=== PATIENT | male | born 1940 | race Caucasian/White ===

== ENCOUNTER 2019-06-02 19:44 | Inpatient (IN) | payer MEDICARE, BC ==
[~2019-06-02] VITALS: Ht 172.7 cm; Wt 63.7 kg
[~2019-06-02 19:44] MED LIST: ALBU2.5V5 INH; ALBU90OI INH; Prednisone20 MG PO; Zithromax250 MG PO
[2019-06-02 22:47] LABS: Hematocrit 22.1 % (37.0-53.0); Hemoglobin 7.1 g/dL (13.5-17.5); Mean Corpuscular HGB 30.3 pg (26.0-34.0); Mean Corpuscular HGB Conc 32.1 g/dL (31.5-36.5); Mean Corpuscular Volume 94 fL (80-100); Mean Platelet Volume 11.1 fL (9.1-12.4); NRBC ABSOLUTE 2.05 K/mm3 (0.00-0.02); NRBC Auto 13.2 /100 WBC (0.0-0.2); RDW Coefficient Variation 16.2 % (11.7-14.2); RDW Standard Deviation 51.2 fL (35.1-46.3); Red Blood Cell Count 2.34 M/mm3 (4.30-5.90); White Blood Cell Count 15.55 K/mm3 (4.00-11.30)
[2019-06-02 22:53] LABS: Platelet Count 43 K/mm3 (150-400)
[2019-06-02 23:07] LABS: Albumin/Globulin Ratio 0.8 (0.8-1.8); Bilirubin, Total 0.5 mg/dL (0.1-1.0); Bun/Creatinine Ratio 26.8 (12.0-20.0); Calcium, Blood 7.7 mg/dL (8.5-10.1); Creatinine, Blood 1.9 mg/dL (0.60-1.20); Globulin, Blood 3.8 g/dL (2.2-4.0); Potassium, Blood 4.6 mmol/L (3.5-5.5); Total Protein, Blood 6.8 g/dL (6.4-8.2)
[2019-06-02 23:12] LABS: BAND PERCENT MAN 8 % (0-8); BASOPHILS PERCENT MAN 0 % (0-2); EOSINOPHILS PERCENT MAN 0 % (0-6); LYMPHOCYTES ABSOLUTE MAN 3.42 K/mm3 (0.84-5.20); LYMPHOCYTES PERCENT MAN 22 % (21-46); METAMYELOCYTE ABSOLUTE MAN 0.31 K/mm3 (0.00-0.00); METAMYELOCYTE PERCENT MAN 2 % (0-0); MONOCYTES ABSOLUTE MAN 0.93 K/mm3 (0.16-1.47); MONOCYTES PERCENT MAN 6 % (4-13); NEUTROPHILS ABSOLUTE MAN 10.88 K/mm3 (1.96-9.15); SEG NEUTROPHILS PERCENT MAN 62 % (41-73); TOTAL CELLS COUNTED 100
[2019-06-02 23:28] LABS: Troponin I 19.7 ng/mL (0.000-0.040)
[2019-06-03] MEDS ORDERED: [UNRECOGNIZED DRUG - OTHER] (01:42)
--- NOTE | 2019-06-03 01:55 | NUR ---
CALLED DR. MAYA TO VERIFY LOVENOX AND ASPIRN ORDER DUE TO PLT COUNT OF 49. DOCTOR STATED TO HOLD THIS DOSE AND GIVE ASPIRN. WANTS TO GIVE A UNIT OF BLOOD THEN REEVALUATE.
--- NOTE | 2019-06-03 03:25 | NUR ---
STARTED PATIENT UNIT OF BLOOD.
--- NOTE | 2019-06-03 03:40 | NUR ---
PATIENT HAS HAD NO REACTION TO BLOOD AT THIS TIME. PRBC CONTINUE TO INFUSE.
--- NOTE | 2019-06-03 06:36 | NUR ---
PATIENT BLOOD IS ALMOST FINISHED. PATIENT VITALS STABLE. PATIENT DENIES ANY SYMPTOMS OR CHANGES. DENIES ANY NEEDS AT THIS TIME.
[2019-06-03 07:12] LABS: Percent Saturation 62.7 % (20.0-50.0)
[2019-06-03 07:45] LABS: Hematocrit 23.5 % (37.0-53.0); Hemoglobin 7.8 g/dL (13.5-17.5); Mean Corpuscular HGB 29.8 pg (26.0-34.0); Mean Corpuscular HGB Conc 33.2 g/dL (31.5-36.5); Mean Platelet Volume 11.9 fL (9.1-12.4); NRBC ABSOLUTE 1.87 K/mm3 (0.00-0.02); NRBC Auto 14.3 /100 WBC (0.0-0.2); RDW Standard Deviation 45.1 fL (35.1-46.3); Red Blood Cell Count 2.62 M/mm3 (4.30-5.90); White Blood Cell Count 13.09 K/mm3 (4.00-11.30)
[2019-06-03 07:50] LABS: IMMATURE RETIC FRACTION 26.6 % (2.3-16.0); RETIC HGB EQUIVALENT 37.5 pg (28.20-36.60); RETICULOCYTE COUNT PERCENT 2.08 % (0.50-2.50)
[2019-06-03 07:52] LABS: Mean Corpuscular Volume 90 fL (80-100)
[2019-06-03 08:02] LABS: Albumin, Blood 2.9 g/dL (3.4-5.0); Albumin/Globulin Ratio 0.9 (0.8-1.8); Bilirubin, Total 0.8 mg/dL (0.1-1.0); Bun/Creatinine Ratio 30.2 (12.0-20.0); Calcium, Blood 7.6 mg/dL (8.5-10.1); Creatinine, Blood 1.72 mg/dL (0.60-1.20); Globulin, Blood 3.3 g/dL (2.2-4.0); Potassium, Blood 4.2 mmol/L (3.5-5.5); Total Protein, Blood 6.2 g/dL (6.4-8.2)
[2019-06-03 08:26] LABS: Platelet Count 39 K/mm3 (150-400)
--- NOTE | 2019-06-03 08:30 | NUR ---
AM NOTE. ASSUMED CARE OF PT APROX 0700, PT IS A&Ox4 AND SBA IN THE ROOM. PT WAS ADMITTED FOR ACS. PT DENIES ANY CHEST PAIN/PRESSURE, N/V OR SOB. PT IS ON 2L NC WITH O2 >90% PT DOES NOT USE O2 AT HOME. PT BECOMES SLIGHTLY SOB WITH ACTIVITY. PT'S VS STABLE AT THIS TIME. WILL CONTINUE TO MONITOR.
[2019-06-03 08:38] LABS: Creatine Kinase MB 39.2 ng/mL (0.0-3.6); Creatine Kinase MB Index 5.4 (0.0-4.0)
[2019-06-03 10:55] LABS: Free Thyroxine 0.84 ng/dL (0.70-1.60)
[2019-06-03 11:13] LABS: Thyroid Stimulating Hormone 4.41 uIU/mL (0.360-4.800)
--- NOTE | 2019-06-03 16:02 | NUR ---
echocardiogram complete
--- NOTE | 2019-06-03 17:58 | NUR ---
SHIFT SUMMARY. NO ACUTE NEGATIVE CHANGES NOTED THIS SHIFT. PT'S BREATHING HAS GREATLY IMPROVED AND PT HAS BEEN ON RA SINCE APROX 1200. PT HAS BEEN ABLE TO AMBULATE TO THE BATHROOM AND BACK AND ONLY BECOMES SLIGHTLY SOB AND HE IS ABLE TO RECOVER QUICKLY W/O ANY O2 SUPPLEMENTATION. PT WAS TOLD THAT HE MIGHT HAVE MYLEOFIBROSIS AND THAT IS WHAT IS CAUSING THE ANEMIA AND OTHER ISSUES. PT AND FAMILY WERE VERY UPSET BY THIS NEWS, PT HAS BEEN TEARFUL T/O SHIFT. SEVERAL HOURS HAVE BEEN SPENT BY THIS RN PROVIDING THE PT AND FAMILY EDUCATION AND EMOTIONAL SUPPORT. PT HAD CT OF THE ABD W/ORAL CONTRAST THIS AFTERNOON, RESULTS ARE PENDING. PT HAS DENIED ANY CHEST PAIN AT ALL THIS SHIFT. CALL LIGHT IN REACH, BED IS LOCKED AND LOW WILL CONTINUE TO MONITOR UNTIL REPORT IS GIVEN TO ONCOMING RN.
--- NOTE | 2019-06-03 22:06 | NUR ---
INFUSION OF ONE UNIT OF PRBC'S STARTED.
[2019-06-04 02:04] LABS: Bilirubin, Urine Neg (Neg); Blood, Urine 2+ (Neg); Glucose Qualitative, Urine Neg (Neg); Ketones, Urine Neg (Neg); Leukocyte Esterase, Urine Neg (Neg); Nitrite, Urine Neg (Neg); Protein, Urine 2+ (Neg); Specific Gravity, Urine 1.025 (1.003-1.022); Urobilinogen, Urine NORM (Normal)
[2019-06-04 02:07] LABS: Appearance, Urine Clear (Clear); Color, Urine Yellow (P-Yellow)
[2019-06-04 02:11] LABS: Amorphous Light (0-Heavy); Bacteria Few /hpf; Red Blood Cells, Urine 0-2 /hpf (0-2); Squamous Epithelial Cells Not Seen /hpf (Few); White Blood Cells, Urine 0-2 /hpf (0-5)
[2019-06-04 02:12] LABS: Uric Acid Crystals Mod /hpf
--- NOTE | 2019-06-04 03:46 | NUR ---
PATIENT RECIEVED ONE UNIT OF BLOOD WITH NO REACTION NOTED. PATIENT SLEEPING THROUGH THE NIGHT. PATIENT BLOOD PRESSURE SOFT IN THE 90'S THROUGH THE NIGHT. PATIENT ASYMPTOMATIC WITH ADEQUATE MAPS. PATIENT BASELINE IS IN THE 100'S. PATIENT DENIES ANY PAIN.
[2019-06-04 04:29] LABS: BASOPHILS ABSOLUTE AUTO 0.02 K/mm3 (0.00-0.23); BASOPHILS PERCENT AUTO 0 % (0-2); EOSINOPHILS PERCENT AUTO 0 % (0-6); Hematocrit 26.9 % (37.0-53.0); Hemoglobin 9.3 g/dL (13.5-17.5); Mean Corpuscular HGB Conc 34.6 g/dL (31.5-36.5); Mean Corpuscular Volume 90 fL (80-100); Mean Platelet Volume 11.6 fL (9.1-12.4); NRBC ABSOLUTE 1.42 K/mm3 (0.00-0.02); NRBC Auto 14.7 /100 WBC (0.0-0.2); RDW Coefficient Variation 15.2 % (11.7-14.2); RDW Standard Deviation 46.5 fL (35.1-46.3); White Blood Cell Count 9.65 K/mm3 (4.00-11.30)
[2019-06-04 04:32] LABS: IMMATURE GRAN ABSOLUTE AUTO 0.28 K/mm3 (0.00-0.10); IMMATURE GRAN PERCENT AUTO 3 % (0-1); LYMPHOCYTES ABSOLUTE AUTO 3.74 K/mm3 (0.84-5.20); LYMPHOCYTES PERCENT AUTO 39 % (21-46); MONOCYTES ABSOLUTE AUTO 0.29 K/mm3 (0.16-1.47); MONOCYTES PERCENT AUTO 3 % (4-13); NEUTROPHILS ABSOLUTE AUTO 5.32 K/mm3 (1.96-9.15); NEUTROPHILS PERCENT AUTO 55 % (41-73)
[2019-06-04 04:33] LABS: Platelet Count 27 K/mm3 (150-400)
[2019-06-04 04:45] LABS: Albumin, Blood 2.8 g/dL (3.4-5.0); Albumin/Globulin Ratio 0.8 (0.8-1.8); Bilirubin, Total 0.8 mg/dL (0.1-1.0); Creatinine, Blood 1.53 mg/dL (0.60-1.20); Globulin, Blood 3.5 g/dL (2.2-4.0); Magnesium, Blood 2.8 mg/dL (1.6-2.4); Phosphorus, Blood 4.3 mg/dL (2.5-4.9); Total Protein, Blood 6.3 g/dL (6.4-8.2)
[2019-06-04 07:07] LABS: COMPLEMENT C3, SERUM 124 mg/dL (82-167); COMPLEMENT C4, SERUM 27 mg/dL (14-44); HAPTOGLOBIN 316 mg/dL (34-200)
--- NOTE | 2019-06-04 17:00 | NUR ---
END OF SHIFT; PT IS TO RECEIVE A BIOPSY TOMORROW PER . HE REMAINS ON BEDREST TODAY. PT ASKS FOR O2 AT 2 LITERS NASAL CANNULA. STATES IT MAKES HIM FEEL BETTER. PT APPEARS TO BE VERY ANXIOUS WHEN NOT ON O2. FAMILY REMAINS AT BEDSDIE THROUGHOUT DAY. VSS CHARTED. EGG CRATE PLACED ON BED AND MEPELEX TO BUTTOCKS FOR RED AREA THAT BLANCHES TO TOUCH. HE RECEIVED ONE UNIT OF FFP. ALSO HAS MEDICATION THAT WAS SORDERED BY THAT PER PHARMACY IS NOT AVAILABLE UNTIL THE AM TOMORROW. WILL CONTINUE TO MONITOR THIS PATIENT UNTIL REPORT AND HAND OFF TO NOC SHIFT RN.
--- NOTE | 2019-06-05 01:47 | NUR ---
ASSUMED CARE AT 1900 AND MUCH FAMILY PRESENT . LEFT BY 1999 TO ALLOW BETTER REST REQUESTED. REPORTS NO SORE UNDER PREVENTIVE COCCYX MEPILEX. EGG CRATE AND TURNING FROM SIDE TO SIDE. AWARE OF BX TOMORROW AND QUESTIONS ANSWERED. ATE A SANDWICH AND TOLERATED W/O GI DISTRESS. DOES KEEP HOB MOSTLY SEMI FOWLERS.FEELS MORE COMFORTABLE W/ 2L NC ON . LONG HX OF ASTHMA AND WOULD BE IN HOPES HE COULD QUALIFY FOR O2 AT HIS HOME. REOORTS STRUGGLING W/ SOB ALL WEEK ON EXERTION AND WENT TO ED 3 TIMES IN 3 DAYS. LONG DISCUSSION, WHEN IN ROOM, ABOUT GRANDAUGHTERS AND DISATISFACTION W/ THIS ED AND HOSPITAL. ENCOURAGED TO DISCUSS FEELINGS FREELY. REPORTS HE APPRECIATES STAFF AND MD CASTANO, THUS FAR FOR HIS CONDITION. NOT OUT OF BED SO NOT NOTICING ANY SOB .
[2019-06-05 02:25] LABS: Bilirubin, Urine Neg (Neg); Blood, Urine Neg (Neg); Glucose Qualitative, Urine Neg (Neg); Ketones, Urine Neg (Neg); Leukocyte Esterase, Urine Neg (Neg); Nitrite, Urine Neg (Neg); Protein, Urine 1+ (Neg); Urobilinogen, Urine NORM (Normal)
[2019-06-05 02:28] LABS: Appearance, Urine Clear (Clear); Color, Urine Yellow (P-Yellow)
[2019-06-05 04:27] LABS: BASOPHILS ABSOLUTE AUTO 0.01 K/mm3 (0.00-0.23); BASOPHILS PERCENT AUTO 0 % (0-2); EOSINOPHILS ABSOLUTE AUTO 0.01 K/mm3 (0.00-0.68); EOSINOPHILS PERCENT AUTO 0 % (0-6); Hematocrit 25.2 % (37.0-53.0); Hemoglobin 8.3 g/dL (13.5-17.5); Mean Corpuscular HGB 30.4 pg (26.0-34.0); Mean Corpuscular HGB Conc 32.9 g/dL (31.5-36.5); Mean Corpuscular Volume 92 fL (80-100); Mean Platelet Volume 10.7 fL (9.1-12.4); NRBC ABSOLUTE 1.05 K/mm3 (0.00-0.02); NRBC Auto 12.6 /100 WBC (0.0-0.2); Platelet Count 63 K/mm3 (150-400); RDW Coefficient Variation 15.8 % (11.7-14.2); RDW Standard Deviation 49.4 fL (35.1-46.3); Red Blood Cell Count 2.73 M/mm3 (4.30-5.90); White Blood Cell Count 8.31 K/mm3 (4.00-11.30)
[2019-06-05 04:40] LABS: IMMATURE GRAN ABSOLUTE AUTO 0.21 K/mm3 (0.00-0.10); IMMATURE GRAN PERCENT AUTO 3 % (0-1); LYMPHOCYTES ABSOLUTE AUTO 2.76 K/mm3 (0.84-5.20); LYMPHOCYTES PERCENT AUTO 33 % (21-46); MONOCYTES ABSOLUTE AUTO 0.25 K/mm3 (0.16-1.47); MONOCYTES PERCENT AUTO 3 % (4-13); NEUTROPHILS ABSOLUTE AUTO 5.07 K/mm3 (1.96-9.15); NEUTROPHILS PERCENT AUTO 61 % (41-73)
[2019-06-05 04:45] LABS: Albumin, Blood 2.6 g/dL (3.4-5.0); Anion Gap 9 mmol/L (6-16); Blood Urea Nitrogen 48 mg/dL (8-24); Bun/Creatinine Ratio 33.1 (12.0-20.0); CO2, Blood 23 mmol/L (21-32); Calcium, Blood 7.6 mg/dL (8.5-10.1); Chloride, Blood 107 mmol/L (98-108); Creatinine, Blood 1.45 mg/dL (0.60-1.20); Glomerular Filtration Rate 50 (60-); Glucose, Blood 107 mg/dL (70-99); Magnesium, Blood 2.8 mg/dL (1.6-2.4); Phosphorus, Blood 4.2 mg/dL (2.5-4.9); Potassium, Blood 3.8 mmol/L (3.5-5.5); Sodium, Blood 139 mmol/L (136-145)
--- NOTE | 2019-06-05 06:12 | NUR ---
SHIFT SUMMARY. SLEPT ALL NOC BP LOWER , MAP WNL AND ASYMPTOMATIC. AWAKENS AND STEADY GAIT FOR STANDING AT BEDSIDE TO VOID. MENTATION CLEAR AND NO EVIDENCE OF ANXIOUSNESS . DID NOT STAY THE NOC. NO SOB NOTED LEFT O2 ON AT 1L FOR PERSONAL COMFORT
--- NOTE | 2019-06-05 08:05 | NUR ---
Pt states he saw Dr Austin this morning. Dr. Onofre is here now seeing the pt. He states he "is ready for the [employer]" as he feels paranoid about his shortness of breath with activity, but states that it does get better right after rest. 2 Units of PRBCs have been ordered. The pt at this time is pleasantly conversant, cheerful, and talkative while at rest in bed.
[2019-06-05 10:40] LABS: Antinuclear Antibody Screen Negative (Negative)
[2019-06-05 12:06] LABS: ANTI-DSDNA ANTIBODIES 9 IU/mL (0-9); RNP ANTIBODIES 0.6 AI (0.0-0.9); SJOGREN'S ANTI-SS-A <0.2 AI (0.0-0.9); SJOGREN'S ANTI-SS-B <0.2 AI (0.0-0.9); SMITH ANTIBODIES <0.2 AI (0.0-0.9)
[2019-06-05 13:23] LABS: International Normalized Ratio 1.02; Prothrombin Time Results 10.8 Sec (9.7-11.5)
--- NOTE | 2019-06-05 13:35 | NUR ---
Carlton has been asking lots of questions about his diet and medications after discharge. Underlying anxiety certainly seems to be present with regard to his current health condition. He states that he has had no PCP, but expects to be following Dr. Austin and "figuring all that out with him". He was given educational material regarding 1800cc fluid restriction, cardiac diet, and low purine diet as recommended. Also provided the pt with an [employer] "Self check guide" to monitor his CHF at home. Also provided AHA CHF educational material for the pt to read so he would have time before discharge to ask questions if he had any; however, he has declined to actually read the material. He seemed to be discouraged at the thought that his EF was less than 40%. Noted that perhaps due to memory loss or possibly his heightened anxiety and stress level given the fresh diagnosis, that he is repeating his questions frequently and also repeating the same information to me, at times within the space of just a few minutes. Otherwise he seems alert and oriented.
--- NOTE | 2019-06-05 17:05 | NUR ---
Spoke with a emergency room rn this morning and gave the pt educational materials as explained. The pt states that he has not yet reviewed the material. He is requesting a dietary consult so that he could have an actual person to talk to about the dietary recommendations. He is anxious and asking many questions about the fluid restriction; often in the same brief conversation he will repeat the same questions multiple times. At this time 1750 cc /[address] Onofre.
[2019-06-05 17:07] LABS: ALBUMIN 3.2 g/dL (2.9-4.4); ALPHA-1-GLOBULIN 0.4 g/dL (0.0-0.4); ALPHA-2-GLOBULIN 1.1 g/dL (0.4-1.0); BETA GLOBULIN 0.8 g/dL (0.7-1.3); GAMMA GLOBULIN 0.9 g/dL (0.4-1.8); GLOBULIN, TOTAL 3.2 g/dL (2.2-3.9); IMMUNOGLOBULIN A, QN, SERUM 191 mg/dL (61-437); IMMUNOGLOBULIN G, QN, SERUM 1080 mg/dL (700-1600); IMMUNOGLOBULIN M, QN, SERUM 48 mg/dL (15-143); M-SPIKE Not Observed g/dL (Not Observed); PROTEIN, TOTAL, SERUM 6.4 g/dL (6.0-8.5)
--- NOTE | 2019-06-05 22:11 | NUR ---
PCU ASSUMED CARE PATIENT ALERT AND ORIENTED X4. RESP E/U ON ROOM AIR. VSS. PATIENT DENIES ANY PAIN AT THIS TIME. PATIENT VOIDING DARK YELLOW URINE - CLEAR IN URINAL. PATIENT RESTING IN UNIT BED AT THIS TIME, DENIES ANY NEEDS. WILL CONTINUE TO MONITOR.
--- NOTE | 2019-06-06 05:56 | NUR ---
PCU NOC SHIFT SUMMARY PATIENT ALERT AND ORIENTED T/O SHIFT. DENIES ANY PAIN T/O SHIFT; RESP E/U AT REST ON ROOM AIR. PATIENTS VSS. NO ACUTE EVENTS OVER NIGHT. HEART RATE REMAINS 80'S IN NSR. WILL CONTINUE TO MONITOR AND GIVE REPORT TO DAYSHIFT RN. PATIENT TO D/C HOME TODAY AND FOLLOW MD PARADA AND A MEAT STRINGER OUTPATIENT.
[2019-06-06 05:59] LABS: (LD) FRACTION 1 27 % (17-32); (LD) FRACTION 2 33 % (25-40); (LD) FRACTION 3 23 % (17-27); (LD) FRACTION 4 10 % (5-13); (LD) FRACTION 5 7 % (4-20); LDH 578 IU/L (121-224)
[2019-06-06] MEDS ORDERED: ALLO300 PO (11:40)
[2019-06-06] MEDS ORDERED: FURO40 PO (11:41)
[2019-06-06] MEDS ORDERED: ATOR80 PO (11:41)
[2019-06-06] MEDS ORDERED: CARV3.125 PO (11:41)
[2019-06-06] MEDS ORDERED: OMEPRAZOLE20 MG PO (11:42)
--- NOTE | 2019-06-06 14:43 | NUR ---
DISCHARGE SUMMARY PT A&Ox4. PT ANXIOUS, REPEATING QUESTIONS AND STATEMENTS. PT RESTING IN BED DURING SHIFT, UP WITH SBA IN ROOM. PT REPORTS MILD SOB WITH EXERTIONS, >92% ON RA. PT DENIES PAIN AND NAUSEA, T/O SHIFT. PT TRANSITIONED TO PO LASIX THIS AM. VSS. NO OTHER ACUTE CHAGNES NOTED. PT AND SPOUSE EDUCATED ON DISCHARGE INSTRUCTIONS, MEDICATIONS AND FOLLOW UP APPOINTMENTS. PRESCRIPTIONS FAXED TO [facility], PER PT REQUEST. PT LEFT ROOM AT 1425 VIA WHEELCHAIR, PT STABLE UPON DISCHARGE.
[2019-06-06 17:07] LABS: ALBUMIN 2.9 g/dL (2.9-4.4); ALPHA-1-GLOBULIN 0.4 g/dL (0.0-0.4); ALPHA-2-GLOBULIN 1.1 g/dL (0.4-1.0); BETA GLOBULIN 0.7 g/dL (0.7-1.3); GAMMA GLOBULIN 0.8 g/dL (0.4-1.8); GLOBULIN, TOTAL 3.1 g/dL (2.2-3.9); IMMUNOGLOBULIN A, QN, SERUM 182 mg/dL (61-437); IMMUNOGLOBULIN G, QN, SERUM 847 mg/dL (700-1600); IMMUNOGLOBULIN M, QN, SERUM 42 mg/dL (15-143); M-SPIKE Not Observed g/dL (Not Observed)
[2019-06-08 15:20] LABS: Performing Lab SYMBIODX; Test Name TISSUE BLOCK
== END 2019-06-06 14:34 | disposition home or self-care (01) | DRG 264 ==
LOC: ER 19:44 → PCU 23:58
PROVIDERS: Emergency Medicine; Internal Medicine; Internal Medicine Hematology & Oncology; ADMIT Internal Medicine
PROC: 30233N1 Transfusion of Nonautologous Red Blood Cells into Peripheral Vein, Percutaneous Approach (ICD-10-PCS; principal; 2019-06-02)
PROC: 07B63ZX Excision of Left Axillary Lymphatic, Percutaneous Approach, Diagnostic (ICD-10-PCS; 2019-06-05)
DX: I13.0 Hypertensive heart and chronic kidney disease with heart failure and stage 1 through stage 4 chronic kidney disease, or unspecified chronic kidney disease (principal); I50.21 Acute systolic (congestive) heart failure; N17.9 Acute kidney failure, unspecified; I24.9 Acute ischemic heart disease, unspecified; C85.90 Non-Hodgkin lymphoma, unspecified, unspecified site; N18.9 Chronic kidney disease, unspecified; D63.1 Anemia in chronic kidney disease; D69.6 Thrombocytopenia, unspecified; D69.49 Other primary thrombocytopenia; N28.9 Disorder of kidney and ureter, unspecified; I25.5 Ischemic cardiomyopathy; E11.22 Type 2 diabetes mellitus with diabetic chronic kidney disease; I25.10 Atherosclerotic heart disease of native coronary artery without angina pectoris; J45.909 Unspecified asthma, uncomplicated; R59.1 Generalized enlarged lymph nodes
CPT/HCPCS: 36415; 36416; 36430; 38505; 71046; 71250; 74176; 76942; 80053; 80069; 81001; 82550; 82553; 82607; 82728; 82746; 82784; 82947; 83010; 83036; 83540; 83550; 83615; 83625; 83735; 83880; 83883; 84100; 84155; 84165; 84439; 84443; 84484; 84550; 85025; 85027; 85045; 85610; 86038; 86160; 86225; 86235; 86301; 86334; 86430; 86850; 86900; 86901; 86920; 88305; 88341; 88342; 93005; 93010; 93306; 94640; 94761; 99284-25; 99285-25; J1940; J2783; J7050; P9016; P9035

== ENCOUNTER 2019-07-10 19:20 | Inpatient (IN) | payer MEDICARE, BC ==
[~2019-07-10] VITALS: Ht 172.7 cm; Wt 65.4 kg
[~2019-07-10 19:20] MED LIST changes: +ALLO300 PO; +ATOR80 PO; +CARV3.125 PO; +FURO40 PO; +OMEPRAZOLE20 MG PO; +[UNRECOGNIZED DRUG - OTHER]
[2019-07-10] MEDS ORDERED: ONDA8 PO (19:47)
[2019-07-10 19:48] LABS: BASOPHILS ABSOLUTE AUTO 0.01 K/mm3 (0.00-0.23); BASOPHILS PERCENT AUTO 0 % (0-2); EOSINOPHILS PERCENT AUTO 0 % (0-6); Hemoglobin 7.2 g/dL (13.5-17.5); IMMATURE GRAN ABSOLUTE AUTO 0.04 K/mm3 (0.00-0.10); IMMATURE GRAN PERCENT AUTO 1 % (0-1); LYMPHOCYTES ABSOLUTE AUTO 0.26 K/mm3 (0.84-5.20); LYMPHOCYTES PERCENT AUTO 4 % (21-46); MONOCYTES ABSOLUTE AUTO 0.54 K/mm3 (0.16-1.47); MONOCYTES PERCENT AUTO 8 % (4-13); Mean Platelet Volume 10.4 fL (9.1-12.4); NEUTROPHILS ABSOLUTE AUTO 5.84 K/mm3 (1.96-9.15); NEUTROPHILS PERCENT AUTO 87 % (41-73); NRBC ABSOLUTE 0.02 K/mm3 (0.00-0.02); NRBC Auto 0.3 /100 WBC (0.0-0.2); Platelet Count 109 K/mm3 (150-400); White Blood Cell Count 6.69 K/mm3 (4.00-11.30)
[2019-07-10] MEDS ORDERED: XARELTO20 MG PO (19:48)
[2019-07-10 20:00] LABS: Albumin, Blood 2.5 g/dL (3.4-5.0); Albumin/Globulin Ratio 0.9 (0.8-1.8); Bilirubin, Total 0.8 mg/dL (0.1-1.0); Bun/Creatinine Ratio 19.5 (12.0-20.0); Calcium, Blood 7.5 mg/dL (8.5-10.1); Creatinine, Blood 1.54 mg/dL (0.60-1.20); Globulin, Blood 2.8 g/dL (2.2-4.0); Potassium, Blood 4.3 mmol/L (3.5-5.5); Total Protein, Blood 5.3 g/dL (6.4-8.2)
[2019-07-10 20:04] LABS: Hematocrit 22.9 % (37.0-53.0); Mean Corpuscular HGB 35.1 pg (26.0-34.0); Mean Corpuscular HGB Conc 31.4 g/dL (31.5-36.5); Mean Corpuscular Volume 112 fL (80-100); Red Blood Cell Count 2.05 M/mm3 (4.30-5.90)
[2019-07-11 03:41] LABS: BASOPHILS ABSOLUTE AUTO 0.02 K/mm3 (0.00-0.23); BASOPHILS PERCENT AUTO 0 % (0-2); EOSINOPHILS ABSOLUTE AUTO 0.01 K/mm3 (0.00-0.68); EOSINOPHILS PERCENT AUTO 0 % (0-6); Hematocrit 26.9 % (37.0-53.0); Hemoglobin 8.7 g/dL (13.5-17.5); IMMATURE GRAN ABSOLUTE AUTO 0.05 K/mm3 (0.00-0.10); IMMATURE GRAN PERCENT AUTO 1 % (0-1); LYMPHOCYTES ABSOLUTE AUTO 0.28 K/mm3 (0.84-5.20); LYMPHOCYTES PERCENT AUTO 4 % (21-46); MONOCYTES ABSOLUTE AUTO 0.73 K/mm3 (0.16-1.47); MONOCYTES PERCENT AUTO 10 % (4-13); Mean Corpuscular HGB 33.3 pg (26.0-34.0); Mean Corpuscular HGB Conc 32.3 g/dL (31.5-36.5); Mean Platelet Volume 10.8 fL (9.1-12.4); NEUTROPHILS ABSOLUTE AUTO 5.94 K/mm3 (1.96-9.15); NEUTROPHILS PERCENT AUTO 85 % (41-73); NRBC ABSOLUTE 0.02 K/mm3 (0.00-0.02); NRBC Auto 0.3 /100 WBC (0.0-0.2); Platelet Count 87 K/mm3 (150-400); RDW Coefficient Variation 25.2 % (11.7-14.2); Red Blood Cell Count 2.61 M/mm3 (4.30-5.90); White Blood Cell Count 7.03 K/mm3 (4.00-11.30)
[2019-07-11 03:47] LABS: Mean Corpuscular Volume 103 fL (80-100)
--- NOTE | 2019-07-11 06:32 | NUR ---
SHIFT SUMMARY PT SLEEPING IN ROOM COMFORTABLY AT THIS TIME. NO ACUTE CHANGES IN STATSU SINCE ARRIVAL. PT ARRIVED W/ BLOOD TRANSFUING IN PIV. BLOOD FINISHED 30 MIN AFTER ARRIVAL AND PT WAS SL. PROVIDER DC'D NEXT UNIT OF BLOOD. PT EDUCATED ABOUT PROVIDER ORDERS TO HOLD BLOOD UNTIL RE EVALUATE IN THE AM. RESP EVEN UNLABORED ON RA W/ SATS >92%. PT HAS GENERALIZED WEAKNESS AND HAS NOT GOTTEN OUT OF BED SINCE ARRIVAL, USES URINAL IN BED AND CALLS APPROPRIATELY. CALL LIGHT IN REACH.
[2019-07-11 09:58] LABS: BASOPHILS ABSOLUTE AUTO 0.02 K/mm3 (0.00-0.23); BASOPHILS PERCENT AUTO 0 % (0-2); EOSINOPHILS PERCENT AUTO 0 % (0-6); Hematocrit 27.3 % (37.0-53.0); Hemoglobin 9.1 g/dL (13.5-17.5); IMMATURE GRAN ABSOLUTE AUTO 0.06 K/mm3 (0.00-0.10); IMMATURE GRAN PERCENT AUTO 1 % (0-1); LYMPHOCYTES ABSOLUTE AUTO 0.33 K/mm3 (0.84-5.20); LYMPHOCYTES PERCENT AUTO 4 % (21-46); MONOCYTES PERCENT AUTO 9 % (4-13); Mean Corpuscular HGB 33.1 pg (26.0-34.0); Mean Corpuscular HGB Conc 33.3 g/dL (31.5-36.5); NEUTROPHILS ABSOLUTE AUTO 6.75 K/mm3 (1.96-9.15); NEUTROPHILS PERCENT AUTO 86 % (41-73); NRBC ABSOLUTE 0.02 K/mm3 (0.00-0.02); NRBC Auto 0.3 /100 WBC (0.0-0.2); Platelet Count 58 K/mm3 (150-400); RDW Coefficient Variation 25.7 % (11.7-14.2); RDW Standard Deviation 85.3 fL (35.1-46.3); Red Blood Cell Count 2.75 M/mm3 (4.30-5.90); White Blood Cell Count 7.86 K/mm3 (4.00-11.30)
[2019-07-11 10:06] LABS: International Normalized Ratio 1.26; Mean Corpuscular Volume 99 fL (80-100); Prothrombin Time Results 13.1 Sec (9.7-11.5)
--- NOTE | 2019-07-11 17:30 | NUR ---
SHIFT SUMMARY PT A&Ox4, FORGETFUL AND ANXIOUST AT TIMES. PLEASANT AND COOPERTIVE WITH CARE. PT RESTING IN BED DURING SHIFT, UP 1 PERSON ASSIST WITH FWW AND GB. PT DENIES PAIN, SOB AND N/V DURING SHIFT. SPO2 >92% ON RA. PT RECEIVING PO LASIX. BLE EDEMA NOTED, ENCOURAGED PT TO ELEVATE WITH PILLOWS AND BED. VSS. NO OTHER ACUTE CHANGES NOTED. WILL CONTINUE TO MONITOR UNITL REPORT GIVEN TO ONCOMING RN.
[2019-07-12 04:06] LABS: BASOPHILS ABSOLUTE AUTO 0.02 K/mm3 (0.00-0.23); BASOPHILS PERCENT AUTO 0 % (0-2); EOSINOPHILS ABSOLUTE AUTO 0.02 K/mm3 (0.00-0.68); EOSINOPHILS PERCENT AUTO 0 % (0-6); Hematocrit 27.3 % (37.0-53.0); IMMATURE GRAN ABSOLUTE AUTO 0.04 K/mm3 (0.00-0.10); IMMATURE GRAN PERCENT AUTO 1 % (0-1); LYMPHOCYTES ABSOLUTE AUTO 0.38 K/mm3 (0.84-5.20); LYMPHOCYTES PERCENT AUTO 5 % (21-46); MONOCYTES ABSOLUTE AUTO 0.72 K/mm3 (0.16-1.47); MONOCYTES PERCENT AUTO 9 % (4-13); Mean Platelet Volume 10.6 fL (9.1-12.4); NEUTROPHILS ABSOLUTE AUTO 6.53 K/mm3 (1.96-9.15); NEUTROPHILS PERCENT AUTO 85 % (41-73); NRBC ABSOLUTE 0.03 K/mm3 (0.00-0.02); NRBC Auto 0.4 /100 WBC (0.0-0.2); Platelet Count 83 K/mm3 (150-400); RDW Standard Deviation 87.3 fL (35.1-46.3); Red Blood Cell Count 2.65 M/mm3 (4.30-5.90); White Blood Cell Count 7.71 K/mm3 (4.00-11.30)
[2019-07-12 04:07] LABS: Mean Corpuscular Volume 103 fL (80-100)
[2019-07-12 04:24] LABS: Albumin, Blood 2.7 g/dL (3.4-5.0); Anion Gap 8 mmol/L (6-16); Blood Urea Nitrogen 34 mg/dL (8-24); CO2, Blood 26 mmol/L (21-32); Calcium, Blood 7.6 mg/dL (8.5-10.1); Chloride, Blood 101 mmol/L (98-108); Creatinine, Blood 1.36 mg/dL (0.60-1.20); Glomerular Filtration Rate 54 (60-); Glucose, Blood 131 mg/dL (70-99); Phosphorus, Blood 3.8 mg/dL (2.5-4.9); Potassium, Blood 4.6 mmol/L (3.5-5.5); Sodium, Blood 135 mmol/L (136-145)
--- NOTE | 2019-07-12 05:44 | NUR ---
SHIFT SUMMARY PT A&O X4. BP LOW, PT STATES "THAT'S NOT ABNORMAL FOR ME." OTHERWISE VSS. ABD FIRM AND DISTENDED. BLE CONTINUE TO BE SWOLLEN. PEDAL PULSES STRONG DESPITE +4 BILAT FOOT SWELLING. PT IN BED W/ CALL LIGHT IN REACH. NO EVENTS OVER NIGHT. WILL CONTINUE TO MONITOR AND PROVIDE CARE UNTIL REPORT OFF TO DAY SHIFT RN.
--- NOTE | 2019-07-12 17:24 | NUR ---
SHIFT SUMMARY PT A&Ox4, FORGETFUL AT TIMES. PT ANXIOUS BUT COOPERATIVE WITH CARE. PT RESTING IN BED DURING SHIFT UP WITH PT/OT. PT DENIES PAIN, SOB, DIZZINESS/LIGHTHEADEDNESS AND NAUSEA/EMESIS. BLE EDEMA, ENCOURAGED PT TO ELEVATE FEET. PT RECEIVING IV LASIX AND STARTING ON PO ZESTRIL THIS EVENING. HR 90-100 DURING SHIFT, OTHER VSS. NO OTHER ACUTE CHANGES NOTED DURING SHIFT. PLANS FOR PARACENTESIS TOMORROW 07/13, AFTER NO DOSES OF XARELTO FOR 2-3 DAY, LAST DOSE Wednesday07/10/19 1700 PER PT REPORT, NONE SINCE ADMISSION. WILL CONTINUE TO MONITOR UNTIL REPORT GIVEN TO ONCOMING RN.
--- NOTE | 2019-07-13 05:25 | NUR ---
SHIFT SUMMARY PT A&O X4, PLEASANT AND COOPERATIVE. BP CONTINUES TO BE LOW, OTHERWISE VSS. PT ASYMPTOMATIC W/ LOW BP'S, DENYING DIZZINESS OR ANY OTHER SYMPTOMS. PT NEWLY STARTED ON LISINOPRIL EVENING OF 07/12. PT STATES BP NORMALLY BEING 90'S SYS TO LOW 100'S SYS. ABD FIRM AND DISTENDED, PT DENIES PAIN. PT AWAITING THORACENTESIS LATER TODAY. +4 BLE EDEMA. BLE ELEVATED W/ PILLOW. PT FOLLOWING HOME FLUID RESTRICTION HERE IN HOSPITAL. PT IN BED W/ CALL LIGHT IN REACH. WILL CONTINUE TO MONITOR AND PROVIDE CARE UNTIL REPORT OFF TO DAY SHIFT RN.
[2019-07-13 06:38] LABS: BASOPHILS ABSOLUTE AUTO 0.01 K/mm3 (0.00-0.23); BASOPHILS PERCENT AUTO 0 % (0-2); EOSINOPHILS PERCENT AUTO 0 % (0-6); Hematocrit 23.5 % (37.0-53.0); Hemoglobin 7.4 g/dL (13.5-17.5); IMMATURE GRAN ABSOLUTE AUTO 0.04 K/mm3 (0.00-0.10); IMMATURE GRAN PERCENT AUTO 1 % (0-1); LYMPHOCYTES ABSOLUTE AUTO 0.32 K/mm3 (0.84-5.20); LYMPHOCYTES PERCENT AUTO 4 % (21-46); MONOCYTES ABSOLUTE AUTO 0.73 K/mm3 (0.16-1.47); MONOCYTES PERCENT AUTO 10 % (4-13); Mean Corpuscular HGB Conc 31.5 g/dL (31.5-36.5); Mean Corpuscular Volume 102 fL (80-100); Mean Platelet Volume 11.2 fL (9.1-12.4); NEUTROPHILS ABSOLUTE AUTO 6.31 K/mm3 (1.96-9.15); NEUTROPHILS PERCENT AUTO 85 % (41-73); NRBC ABSOLUTE 0.04 K/mm3 (0.00-0.02); NRBC Auto 0.5 /100 WBC (0.0-0.2); Platelet Count 82 K/mm3 (150-400); RDW Standard Deviation 83.2 fL (35.1-46.3); Red Blood Cell Count 2.31 M/mm3 (4.30-5.90); White Blood Cell Count 7.41 K/mm3 (4.00-11.30)
[2019-07-13 06:54] LABS: Albumin, Blood 2.6 g/dL (3.4-5.0); Anion Gap 9 mmol/L (6-16); Blood Urea Nitrogen 56 mg/dL (8-24); Bun/Creatinine Ratio 27.1 (12.0-20.0); CO2, Blood 25 mmol/L (21-32); Calcium, Blood 7.9 mg/dL (8.5-10.1); Chloride, Blood 101 mmol/L (98-108); Creatinine, Blood 2.07 mg/dL (0.60-1.20); Glomerular Filtration Rate 33 (60-); Glucose, Blood 135 mg/dL (70-99); Phosphorus, Blood 3.7 mg/dL (2.5-4.9); Potassium, Blood 4.3 mmol/L (3.5-5.5); Sodium, Blood 135 mmol/L (136-145)
--- NOTE | 2019-07-13 08:00 | NUR ---
PT LAYING IN BED AWAKE WATCHING TV, REPORTS NOT MUCH SLEEP LAST NIHGT, A/OX3, PLEASANT AND COOPERATIVE WITH CARE, FOLLOWS COMMANDS WELL, DENIES PAIN OR SOB BUT GETS SOB WITH ACTIVITY, LUNGS ARE CLEAR IN UPPER PATEL, DIM IN BASES, CURRENTLY ON R/A, RESP EVEN AND UNLABORED, NO COUGH NOTED, HRR, RUNNING SR PER MONITOR, SEE STRIP PPP +2, 4+ EDEMA NOTED TO B/L LE, PITTING AND SOFT, IV SITE IS CLEAR AND PATENT, BTX4, ABD ROUND FIRM NONTENDER, HE STATES HE NEEDS A PARENCENTESIS TODAY, AND THIS HAS BEEN GOING ON SINCE HE STARTED CHEMO, VOIDS WITHOUT DIFF, SKIN HAS SCATTERED BRUISING, MAEW, GARLAND, CALL LIGHT IN REACH.
--- NOTE | 2019-07-13 11:28 | NUR ---
STARTED TRANSFUSION, B/P LOW, BUT HAS BEEN. HE IS HAVING SOME DISCOMFORT FROM ABD DISTENTION, HE WILL HAVE A PARANCENTESIS BETWEEN 1400 AND 1600. IN ROOM. CALL LIGHT IN REACH.
[2019-07-13 15:49] LABS: Automated BF RBC Count 0.939 M/mm3 (0-0); Automated BF WBC Count 0.465 K/mm3 (0-999); Body Fluid WBC Count 465 /mm3 (0-999); RBC Count, Body Fluid 939000 /mm3 (0-0)
--- NOTE | 2019-07-13 15:51 | NUR ---
PT RETURNED TO ROOM AFTER PARACENTESIS, TRANSFUSION STOPPED. 4 LITERS WERE REMOVED FROM ABD. HIS BELLY IS MUCH SOFTER, AND HE FEELS BETTER, PRESSURE IS RELIEVED. HIS PRESSURE IS BACK IN THE 80'S. WILL CONTINUE TO MONITOR, CALL LIGHT IN REACH. FAMILY IN ROOM.
[2019-07-13 16:02] LABS: Albumin, Body Fluid 1.9 g/dL; Glucose, Body Fluid 116 mg/dL; Lactate Dehydrogenase, Body Fl 250 U/L; Protein, Body Fluid 3.4 g/dL
[2019-07-13 16:20] LABS: Appearance, Body Fluid Bloody (Clear); Color, Body Fluid Red (None-Yellow); Total Cell Count, Body Fluid 100
--- NOTE | 2019-07-13 18:39 | NUR ---
pt doing ok, he reports feeling a lot better. Dr. Ruiz called with order for albumin, this is infusing. lots of family in room, blood pressure is holding in the 90's. no complaints. call light in reach.
--- NOTE | 2019-07-13 20:59 | NUR ---
PATIENT REMAINS HYPOTENSIVE NOTIFIED PROVIDER REID OF LOW PRESSURES CONTINUING POST ALBUMIN ADMINISTRATION AND ABD PARACENTISIS. NEW ORDERS GIVEN. WILL CONTINUE TO MONITOR.
--- NOTE | 2019-07-14 04:20 | NUR ---
PCU NOC SHIFT SUMMARY PATIENT REMAIN ALERT AND ORIENTED X4 T/O SHIFT WITH NO ACUTE CHANGES. PATIENT REMAINED IN NSR IN THE 90'S T/O THE SHIFT. PATIENTS ABD REMAINS DISTENDED AND FIRM T/O SHIFT; PATIENT DOES REPORT THE ABD IS LESS DISTENDED POST PERICENTISIS. PATIENT DENIES ANY PAIN T/O SHIFT. PATIENT DID HAVE 2 BOWEL MOVEMENTS THIS SHIFT - VERY SOFT. PATIENTS RESP EVEN AND UNLABORED - AUDITORY WHEEZE AND WOB NOTED AT TIMES. WILL CONTINUE TO MONITOR AND REPORT TO DAYSHIFT RN.
--- NOTE | 2019-07-14 08:00 | NUR ---
PT LAYING IN BED AWAKE A/OX3, PLEASANT AND COOPERATIVE WITH CARE, FOLLOWS COMMANDS WELL, STATES HE SLEPT A BIT BETTER LAST NIGHT OFF AND ON, LUNGS ARE CLEAR IN UPPER PATEL, VERY DIM IN BASES, RESP EVEN AND UNLABORED, NO COUGH NOTED, HRR, TELE IN PLACE RUNNING SR TO ST PER MONITOR, SEE STRIP, 4+ PITTING EDEMA NOTED TO B/L LE, IS SOFT AND CAN PALPATE PP+1, CAP REFILL <SEC, VS STABLE AFEBRILE, IV SITE TO RFA IS CLEAR AND PATENT, BTX4 ABD FLAT SOFT NONTENDER, VOIDS VIA URINAL, SKIN C/W/D, MAEW, IS VERY WEAK, AND BECOMES FATIGUED WITH ACTIVITY, GARLAND ELIZONDO, CALL LIGHT IN REACH.
[2019-07-14 09:41] LABS: Hematocrit 30.8 % (37.0-53.0); Hemoglobin 9.9 g/dL (13.5-17.5)
--- NOTE | 2019-07-14 12:03 | NUR ---
PT B/P IN THE 70'S, CALL TO DR. LEMA HE CANCELED TRANSFER TO MEDICAL FLOOR, WILL KEEP HIM IN PCU, OT IN TO WORK WITH HIM, HE DROPPED TO THE 60'S, BUT NOT SYMPTOMATIC, HE SAT IN THE CHAIR AFTER GOING TO THE BR FOR A FEW MINUTES AND WAS ASSISTED BACK TO BED. FAMILY IN ROOM, NO FURTHER NEEDS AT THIS TIME. FUENTES HOSE WERE PLACED ON PT. CALL LIGHT IN REACH.
--- NOTE | 2019-07-14 12:03 | NUR ---
Patient opnely tells me of his medical issues, about his family, his service and the recent of his grand daughter on 09-19-2018 here in the ED. Patient also admitted to his emotional/mental struggles with his recent diagnosis. I provided empathic listening, pastoral senior genetic counselor, comapnionship and prayer. Patient responded well and and showed signs of restored tenisha.
--- NOTE | 2019-07-14 17:36 | NUR ---
PT RESTING IN BED AFTER GETTING UP TO BSC, HE IS STILL HAVING LOOSE STOOLS, WILL SEND STOOL SAMPLE WITH NEXT STOOL. HE IS WANTING SOMETHING TO MAKE IT STOP BUT IS OK TO WAIT UNTIL AFTER HE GOES AGAIN. GOT SOMETHING ORDERED FOR SLEEP AND PAIN, NO FURTHER CHANGES THIS SHIFT. CALL LIGHT IN REACH.
[2019-07-14 21:34] LABS: Stool Occult Bld Immuno 1 Positive (NEGATIVE)
[2019-07-15 04:27] LABS: Bun/Creatinine Ratio 35.6 (12.0-20.0); Calcium, Blood 7.3 mg/dL (8.5-10.1); Creatinine, Blood 1.88 mg/dL (0.60-1.20); Potassium, Blood 3.8 mmol/L (3.5-5.5)
--- NOTE | 2019-07-15 05:02 | NUR ---
PCU NOC SHIFT SUMMARY PATIENT REMAINED ALERT AND ORIENTED X4 T/O SHIFT. PATIENT VERBALIZED THAT HE WOULD LIKE TO BE LEFT ALONE T/O THE SHIFT TO SLEEP - PATIENT WAS GRANTED HIS REQUEST AND REPORTED THAT HE DID GET SOME SLEEP T/O SHIFT. PATIENT REMAINED HYPOTENSIVE T/O SHIFT (PROVIDERS AWARE THIS ADMIT OF THIS FINDING). HEART RATE REMAINS NSR IN THE 90'S - NO EVENTS NOTED T/O SHIFT. PATIENT DENIES ANY PAIN. ABD REMAINS DISTENDED. BLE REMAIN 4+ EDEMA. WILL CONTINUE TO MONITOR AND REPORT TO ONCOMING SHIFT.
--- NOTE | 2019-07-15 07:55 | NUR ---
DR LEMA ROUNDS DR LEMA AWARE OF PT'S HYPOTENSION. PLAN TO START MIDODRINE. NO FURTHER CHANGES TO PLAN OF CARE AT THIS TIME. WILL CONT TO MONITOR PT.
--- NOTE | 2019-07-15 12:49 | NUR ---
REPORT OFF REPORT GIVEN TO DAREK LOCK RN. ASHVIN TO ASSUME CARE OF PT AT THIS TIME.
--- NOTE | 2019-07-15 18:28 | NUR ---
SHIFT SUMMARY: NO ACUTE DISTRESS NOTED SINCE ASSUMING CARE OF PT. PT HAS BEEN A/O X 4, PLEASENT AND COOPERATIVE. BLOOD PRESSURE WAS NOTED TO BE LOW, BUT APPEARES TO BE ASYMPTOMATIC. DENIES DIZZYNESS OR LIGHTHEADEDNESS. WILL CONTINUE TO MONITOR AND REPORT TO ONCOMING RN. BED IN LOWEST POSSITION AND CALL LIGHT IN REACH.
--- NOTE | 2019-07-15 19:15 | NUR ---
ASSUMED CARE OF PT, BEDSIDE REPORT RECEIVED. PT IS RESTING QUIETLY RECLINING IN BED VISITING WITH [facility]ULTIPLE FAMILY MEMBERS AT [facility]. DENIES NEEDS AT THIS TIME.
[2019-07-16 03:44] LABS: Hematocrit 25.5 % (37.0-53.0); Hemoglobin 8.3 g/dL (13.5-17.5); Mean Corpuscular HGB 32.5 pg (26.0-34.0); Mean Corpuscular HGB Conc 32.5 g/dL (31.5-36.5); Mean Corpuscular Volume 100 fL (80-100); Mean Platelet Volume 11.2 fL (9.1-12.4); Platelet Count 77 K/mm3 (150-400); RDW Coefficient Variation 22.9 % (11.7-14.2); RDW Standard Deviation 78.7 fL (35.1-46.3); Red Blood Cell Count 2.55 M/mm3 (4.30-5.90); White Blood Cell Count 6.37 K/mm3 (4.00-11.30)
[2019-07-16 03:55] LABS: Bun/Creatinine Ratio 39.6 (12.0-20.0); Calcium, Blood 7.5 mg/dL (8.5-10.1); Creatinine, Blood 1.64 mg/dL (0.60-1.20); Potassium, Blood 3.4 mmol/L (3.5-5.5)
--- NOTE | 2019-07-16 06:20 | NUR ---
PT RESTS QUIETLY THIS SHIFT, REQUESTS ASSISTANCE WITH PILLOW PLACEMENT FOR COMFORT BUT DOES TURN HIMSELF WELL. UP TO BS WITH 1 PERSON STANDBY ASSIST AND TOLERATES WELL. PT C/O DIARRHEA YESTERDAY X 3 HAS IMPROVED THIS SHIFT, BOWEL MOVEMENTS X 2 TONIGHT WITH IMPROVEMENT TO SOFT UNFORMED STOOL THIS AM. BLOOD PRESSURE HAS IMPROVED WITH ORDERED MIDODRINE LAST NOC. PT OTHERWISE DENIES NEEDS.
--- NOTE | 2019-07-16 11:08 | NUR ---
AM NOTES PT ALERT AND ORIENTED. SR. UP TO THE BSC X1 THIS AM. PT DISTRESSED ABOUT LOOSE STOOL. NO CRAMPING OR NAUSEA. ABD IS SMALL ROUND AND FIRM TO PALPATION. PASSING FLATUS. DOESN'T LIKE THE FOOD. PT ABLE TO SHAVE AND DO MORMNING ADL'S WITH SET UP. HE TRIED TO SAY HE COULDN'T DO IT BUT WITH ENCOURAGMENT HE WAS ABLE TO FOLLOW THROUGH. PT EXPRESSED FEELING MUCH BETTER. CONTINUE POT.
[2019-07-17 03:55] LABS: Bun/Creatinine Ratio 38.8 (12.0-20.0); Calcium, Blood 7.2 mg/dL (8.5-10.1); Creatinine, Blood 1.29 mg/dL (0.60-1.20); Potassium, Blood 4.1 mmol/L (3.5-5.5)
--- NOTE | 2019-07-17 06:16 | NUR ---
SHIFT SUMMARY. SLEPT ALL NOC. DENIES ACUTE PAIN. W/ Q2 HR TURNS ALWAYS GUARDED IN MOVEMENT. MOSTLY W/ SHOULDERS PROP W/ PILLOWS. MED NO TELE. AFEBRILE . ENC TURN PER SELF COUGH AND DEEP BREATHE. POOR APPETITE AMD HAD REFUSED HS SNACK . FLUID RESTRICTION. ANASARCA AND FUENTES HOSE ON . ABD DISTENTION. MEPILEX ON COCCYZ W/ NOTED SMALL OPEN SKIN AREA RT SIDE OF COCCYX .
--- NOTE | 2019-07-17 11:42 | NUR ---
Patient is sitting on a chair and alert with spouse, Donna, bedside. Patient tells me about his chemotherapy treatment schedule and that he is hoping to see his oncologist at the hospital so he would know the timing of his next treatment and what the paln is going forward. Donna tells me that her family is local and great about reminder her to take care of herself. Patient spoke up and stated that he wants her to rest more too. I provided pastoral care and prayer for patient and Donna. They both voiced appreciation for the visit.
--- NOTE | 2019-07-17 13:17 | NUR ---
PLAN OF CARE PT ALERT. ABLE TO MAKE DECISIONS. NEEDS ENCOURAGEMENT TO DO FOR HIMSELF. TALKED WITH HIM ABOUT MOTIVATION AND SELF CARE. PT CAN DO MOST THINGS FOR HIMSELF BUT PREFERRS TO HAVE STAFF/ DO IT FOR HIM. VSS. UP TO CHAIR AT BEDSIDE. POOR APPETITE. DIETARY HERE TO TALK WITH HIM. CONTINUE POT.
--- NOTE | 2019-07-17 20:45 | NUR ---
CARE ASSUMPTION PT A&O X4. BP LOW, MEDICATION PROVIDED PER EMAR. OTHERWISE VSS. PT DENIES PAIN/DISCOMFORT AT THIS TIME BUT REPORTS OCCASSIONAL "GAS PAIN" THAT "COMES AND GOES". WILL CONTINUE TO MONITOR AND PROVIDE CARE.
[2019-07-18 04:13] LABS: Anion Gap 9 mmol/L (6-16); Blood Urea Nitrogen 39 mg/dL (8-24); Bun/Creatinine Ratio 35.5 (12.0-20.0); CO2, Blood 25 mmol/L (21-32); Calcium, Blood 7.3 mg/dL (8.5-10.1); Chloride, Blood 104 mmol/L (98-108); Glomerular Filtration Rate >60 (60-); Glucose, Blood 124 mg/dL (70-99); Magnesium, Blood 2.3 mg/dL (1.6-2.4); Potassium, Blood 3.1 mmol/L (3.5-5.5); Sodium, Blood 138 mmol/L (136-145)
--- NOTE | 2019-07-18 04:57 | NUR ---
SHIFT SUMMARY PT MEDICAL NO TELE STATUS. A&O X4. BP LOW, MIDODRINE PROVIDED X1 THIS SHIFT. OTHERWISE VSS. CALL TO MD GARRIDO THIS AM TO REPORT POTASSIUM OF 3.1 W/ ORDERS RECEIVED FROM MD FOR ONE TIME PO POTASSIUM, SEE EMAR. BLE CONTINUE TO BE EDEMATOUS W/ +4 EDEMA TO BILAT FEET, AND +2 FROM ANKLES TO KNEES. FUENTES HOSE IN PLACE TO BLE. PT ABD SEVERELY DISTENDED. PT DENIES PAIN/DISCOMFORT. PT REQUIRES ENCOURAGEMENT TO REPOSITION SELF IN BED. STAFF ASSISTING W/ PILLOWS FOR COMFORT/PRESSURE ULCER PREVENTION. WILL CONTINUE TO MONITOR AND PROVIDE CARE UNTIL REPORT OFF TO DAY SHIFT RN.
[2019-07-18 09:31] LABS: Hematocrit 23.3 % (37.0-53.0); Hemoglobin 7.6 g/dL (13.5-17.5); Mean Corpuscular HGB 32.3 pg (26.0-34.0); Mean Corpuscular HGB Conc 32.6 g/dL (31.5-36.5); Mean Corpuscular Volume 99 fL (80-100); Mean Platelet Volume 11.2 fL (9.1-12.4); Platelet Count 79 K/mm3 (150-400); RDW Coefficient Variation 22.5 % (11.7-14.2); RDW Standard Deviation 77.4 fL (35.1-46.3); Red Blood Cell Count 2.35 M/mm3 (4.30-5.90); White Blood Cell Count 4.89 K/mm3 (4.00-11.30)
--- NOTE | 2019-07-18 11:00 | NUR ---
INITIAL [facility] CARE CLINICAL VISIT - REVIEW OF EMR PRIOR TO VISIT AND CASE CONFERENCED WITH NURSING AND HOSPITALIST AFTER VISIT WITH RECOMMENDATIONS AND INTERVENTIONS DISCUSSED. THIS IS PT'S SECOND ADMISSION IN 2 WEEKS AND HE ANTICIPATES GOING HOME TODAY WITH HOME HEALTH SERVICES. 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 HIS CURRENT ADMISSION AND RETURN TO ER WAS FOR SOB AND CHF. PT HAS AN EF OF 30-35% ON ECHOCARDIOGRAM DONE IN MAY OF THIS YEAR. HE IS ALERT AND ORIENTED. BOTH HE AND HIS APPEAR WORRIED AND EXPRESS A LOT OF CONCERN ABOUT HOW HE WILL DO AT HOME AFTER DISCHARGE. PT SPECIFICALLY EXPRESSED CONCERN ABOUT HIS ASCITES RETURNING BECAUSE THE FLUID IN HIS ABDOMEN CAUSED UNBEARABLE SOB PRIOR TO ADMISSION. HE HAS RECEIVED LASIX AND IS VOIDING, USING URINAL, TWICE WHILE I WAS IN THE ROOM. FIRST VOID WAS WAS 200CC DK YELLOW URINE. SECOND VOID WAS 100 CC CLEAR, STRAW COLORED URINE. BOTH TIMES URINAL WAS EMPTIED, WASHED AND PLACED BACK WHERE PT COULD REACH IT. VOIDED URINE REPORTED TO NURSING AND RECORDED ON THE WHITE BOARD. I DISCUSSED THE POTENTIAL FOR CARDIAC REHAB FOR PT DUE TO HIS CHF IF HIS DR AND SERVICE CENTER SUPERVISOR FELT HE WAS MEDICALLY STABLE AND IF THEY FELT HE WOULD BENEFIT. PT AND INTERESTED IN THAT. I REVIEWED POSSIBLE FUTURE OPTIONS IF ASCITES OR PLEURAL EFFUSIONS BECAME FREQUENT AND PT REQUIRED REPEAT PLEURODESIS OR PARACENTESIS PERFORMED, IE PLEUREX DRAIN. LITERATURE FOR EDUCATION GIVEN TO PT AND ON CARDIAC REHAB AND PLEUREX DRAIN TO DISCUSS WITH HIS DRS. DISCUSSED CARDIAC REHAB AFTER HOME HEALTH SERVICES WITH DR AFTER VISIT WITH PT. PT IS A DAILY DRINKER WHO HAS BEEN ADVISED PREVIOUSLY HOW THIS MAY BE CONTRIBUTING TO HIS ASCITES AND OR HEART FAILURE PER LULÚ. TODAY IS MY FIRST TIME MEETING ABBEY AND BOTH HE AND APPEARED GUARDED INTITIALLY BUT MORE RECEPTIVE TOWARDS THE END OF MY VISIT. i WOULD HAVE LIKED TO DISCUSS GOALS OF CARE, ADVANCED CARE PLANNING AND CODE STATUS BUT WAS NOT ABLE TO WITH HIS D/C OCCURING SOON TODAY. WILL ADDRESS IF POSSIBLE IF PT IS ADMITTED IN THE FUTURE. PT DOES NOT HAVE A PCP AND HAS BEEN REFERRED TO [facility] AND [facility] ACCEPTING PCP'S PER [facility].
[2019-07-18] MEDS ORDERED: LACT PO (11:59)
[2019-07-18] MEDS ORDERED: MIDO5 PO (12:00)
[2019-07-18] MEDS ORDERED: PSYLLIUM PO (12:01)
[2019-07-18] MEDS ORDERED: TORSE20 PO (12:02)
[2019-07-18] MEDS ORDERED: POTA10T PO (12:04)
--- NOTE | 2019-07-18 15:18 | NUR ---
Call from [facility] to say that the faxed prescriptions to [facility] were not received by the pharmacy. Fax verification page was reviewed, and phone number on the fax transmission was verified correct with [facility] pharmacy staff. Due to apparent unreliability of the fax system, prescriptions were given over the phone to Pharmacist and verified by read back.
== END 2019-07-18 13:51 | disposition home or self-care (01) | DRG 840 ==
LOC: ER 19:20 → PCU 19:21
PROVIDERS: Emergency Medicine; Internal Medicine; Internal Medicine Hematology & Oncology; Nurse Practitioner Acute Care; ADMIT Family Medicine
PROC: 30233N1 Transfusion of Nonautologous Red Blood Cells into Peripheral Vein, Percutaneous Approach (ICD-10-PCS; principal; 2019-07-12)
PROC: 0W9G30Z Drainage of Peritoneal Cavity with Drainage Device, Percutaneous Approach (ICD-10-PCS; 2019-07-13)
DX: C85.10 Unspecified B-cell lymphoma, unspecified site (principal); I50.23 Acute on chronic systolic (congestive) heart failure; I13.0 Hypertensive heart and chronic kidney disease with heart failure and stage 1 through stage 4 chronic kidney disease, or unspecified chronic kidney disease; I82.401 Acute embolism and thrombosis of unspecified deep veins of right lower extremity; N17.9 Acute kidney failure, unspecified; R18.8 Other ascites; D61.818 Other pancytopenia; D63.0 Anemia in neoplastic disease; Z87.891 Personal history of nicotine dependence; Z92.21 Personal history of antineoplastic chemotherapy; J44.9 Chronic obstructive pulmonary disease, unspecified; I25.2 Old myocardial infarction; D69.6 Thrombocytopenia, unspecified; I25.5 Ischemic cardiomyopathy; I95.9 Hypotension, unspecified; E88.09 Other disorders of plasma-protein metabolism, not elsewhere classified; R19.7 Diarrhea, unspecified; N18.9 Chronic kidney disease, unspecified; Z86.718 Personal history of other venous thrombosis and embolism; D64.81 Anemia due to antineoplastic chemotherapy
CPT/HCPCS: 36415; 36430; 49083; 71046; 71260; 74177; 80048; 80053; 80069; 82042; 82274; 82945; 83615; 83735; 83880; 84145; 84157; 84484; 85014; 85018; 85025; 85027; 85610; 85730; 86850; 86900; 86901; 86923; 87493; 88108; 88305; 89051; 93005; 93010; 94640; 94760; 97110; 97163; 97167; 97530; 97535; 99285-25; G0378; J0696; J1940; J7030; P9016; P9041; P9046; Q9967

== ENCOUNTER 2019-07-30 11:39 | Emergency (ER) | payer MEDICARE, BC ==
[~2019-07-30] VITALS: Ht 170.2 cm; Wt 59.4 kg
[~2019-07-30 11:39] MED LIST changes: +LACT PO; +MIDO5 PO; +ONDA8 PO; +POTA10T PO; +PSYLLIUM PO; +TORSE20 PO; +XARELTO20 MG PO
[2019-07-30 12:30] LABS: BASOPHILS PERCENT AUTO 0 % (0-2); Hemoglobin 7.8 g/dL (13.5-17.5); LYMPHOCYTES ABSOLUTE AUTO 0.09 K/mm3 (0.84-5.20); LYMPHOCYTES PERCENT AUTO 7 % (21-46); MONOCYTES ABSOLUTE AUTO 0.07 K/mm3 (0.16-1.47); MONOCYTES PERCENT AUTO 6 % (4-13); Mean Corpuscular HGB 32.2 pg (26.0-34.0); Mean Corpuscular HGB Conc 31.2 g/dL (31.5-36.5); Mean Platelet Volume 11.6 fL (9.1-12.4); Platelet Count 166 K/mm3 (150-400); RDW Coefficient Variation 20.7 % (11.7-14.2); RDW Standard Deviation 76.1 fL (35.1-46.3); Red Blood Cell Count 2.42 M/mm3 (4.30-5.90); White Blood Cell Count 1.25 K/mm3 (4.00-11.30)
[2019-07-30 12:31] LABS: EOSINOPHILS PERCENT AUTO 0 % (0-6); IMMATURE GRAN ABSOLUTE AUTO 0.02 K/mm3 (0.00-0.10); IMMATURE GRAN PERCENT AUTO 2 % (0-1); Mean Corpuscular Volume 103 fL (80-100); NEUTROPHILS ABSOLUTE AUTO 1.07 K/mm3 (1.96-9.15); NEUTROPHILS PERCENT AUTO 86 % (41-73)
[2019-07-30 12:55] LABS: Alanine Aminotransfer (ALT/SGP 24 U/L (12-78); Albumin, Blood 2.3 g/dL (3.4-5.0); Albumin/Globulin Ratio 0.6 (0.8-1.8); Alk Phos 80 U/L (50-136); Anion Gap 9 mmol/L (6-16); Aspartate Aminotrans (AST/SGOT 27 U/L (12-37); Bilirubin, Total 0.6 mg/dL (0.1-1.0); Blood Urea Nitrogen 28 mg/dL (8-24); CO2, Blood 29 mmol/L (21-32); Calcium, Blood 8.2 mg/dL (8.5-10.1); Chloride, Blood 100 mmol/L (98-108); Creatinine, Blood 1.12 mg/dL (0.60-1.20); Globulin, Blood 3.8 g/dL (2.2-4.0); Glomerular Filtration Rate >60 (60-); Glucose, Blood 117 mg/dL (70-99); Potassium, Blood 4.3 mmol/L (3.5-5.5); Sodium, Blood 138 mmol/L (136-145); Total Protein, Blood 6.1 g/dL (6.4-8.2)
[2019-07-30 16:46] LABS: Hematocrit 27.9 % (37.0-53.0)
== END 2019-07-30 17:34 | disposition home or self-care (01) ==
LOC: ER 11:39
PROVIDERS: Emergency Medicine
DX: D64.9 Anemia, unspecified (principal); C85.90 Non-Hodgkin lymphoma, unspecified, unspecified site; Z79.899 Other long term (current) drug therapy; J45.909 Unspecified asthma, uncomplicated; I50.9 Heart failure, unspecified; J44.9 Chronic obstructive pulmonary disease, unspecified; Z87.891 Personal history of nicotine dependence
CPT/HCPCS: 36430; 71046; 80053; 83880; 84484; 85014; 85018; 85025; 86850; 86900; 86901; 86923; 93005; 93010; 99284-25; J7030; P9016